=== PATIENT | male | born 1985 | race Caucasian/White ===

== ENCOUNTER 2021-02-07 10:54 | Emergency (ER) | payer OTHER ==
[~2021-02-07 10:54] MED LIST: AUGMENTIN 500-1 EACH PO; MEDROL 4MG DOSEP4 MG PO; MOBIC15 MG PO; NORCO 5-325 TA1 EACH PO; PERCOCET 5-3251 EACH PO; ROBAXIN750 MG PO
== END 2021-02-07 13:40 | disposition home or self-care (01) ==
LOC: FER 10:54
DX: S86.812A Strain of other muscle(s) and tendon(s) at lower leg level, left leg, initial encounter (principal); M70.862 Other soft tissue disorders related to use, overuse and pressure, left lower leg; F17.210 Nicotine dependence, cigarettes, uncomplicated; X58.XXXA Exposure to other specified factors, initial encounter
CPT/HCPCS: 73590; 93971